=== PATIENT | female | born 1985 | race Caucasian/White ===

== ENCOUNTER → 2018-11-07 | Outpatient (CLI) | payer OTHER ==
[~2018-11-07] VITALS: Ht 167.6 cm; Wt 50.3 kg
[~2018-11-07] MED LIST: AZAT50TA16 PO; CITA20TA12 PO; CITA40TA19 PO; CYCL5TAB PO; HYDR-34 PO; PRD20T PO; RABE20TA PO; VEDOLIZUMAB 300 MG/NS 250 ML IVPB IV SCH
[2018-11-07 13:00] VITALS: BP 114/65
== END ==
LOC: EDSTATUS 11-06 12:43 → SDC 12:47
PROVIDERS: ATTEND Pediatrics
DX: K50.90 Crohn's disease, unspecified, without complications (principal)
CPT/HCPCS: 96365; 96366; J3380

== ENCOUNTER 2019-01-15 12:48 | Outpatient (CLI) | payer OTHER ==
[~2019-01-15] VITALS: Ht 167.6 cm; Wt 50.3 kg
[~2019-01-15 12:48] MED LIST changes: -VEDOLIZUMAB 300 MG/NS 250 ML IVPB IV SCH
[2019-01-15 13:00] VITALS: BP 101/66
[2019-01-15] MEDS ORDERED: VEDOLIZUMAB 300 MG/NS 250 ML IVPB IV SCH ×2 (13:12)
== END 2019-05-31 08:08 | disposition home or self-care (01) ==
LOC: SDC 12:48
PROVIDERS: ATTEND Pediatrics
DX: K50.919 Crohn's disease, unspecified, with unspecified complications (principal)
CPT/HCPCS: 96365; J3380

== ENCOUNTER 2019-03-11 09:50 | Outpatient (CLI) | payer OTHER ==
[~2019-03-11] VITALS: Ht 167.6 cm; Wt 50.8 kg
[2019-03-11] MEDS ORDERED: VEDOLIZUMAB 300 MG/NS 250 ML IVPB IV SCH ×2 (10:00)
[2019-03-11 11:15] VITALS: BP 117/80
== END 2019-05-31 08:08 | disposition home or self-care (01) ==
LOC: SDC 09:50
PROVIDERS: ATTEND Pediatrics
DX: K50.919 Crohn's disease, unspecified, with unspecified complications (principal)
CPT/HCPCS: 96365; J3380

== ENCOUNTER 2019-05-07 12:03 | Outpatient (CLI) | payer OTHER ==
[~2019-05-07] VITALS: Ht 167.6 cm; Wt 50.8 kg
[2019-05-07 12:08] VITALS: BP 112/72
[2019-05-07] MEDS ORDERED: VEDOLIZUMAB 300 MG/NS 250 ML IVPB IV SCH ×2 (12:15)
== END 2019-05-31 08:08 | disposition home or self-care (01) ==
LOC: SDC 12:03
PROVIDERS: ATTEND Pediatrics
DX: K50.919 Crohn's disease, unspecified, with unspecified complications (principal)
CPT/HCPCS: 96365; J3380

== ENCOUNTER 2019-05-30 15:59 | Outpatient (CLI) | payer OTHER ==
[~2019-05-30] VITALS: Ht 167 cm; Wt 50.0 kg
[2019-05-30 16:22] VITALS: BP 103/72
[2019-05-30 16:26] LABS: BASOPHILS % (AUTO) 0 % (0-10); EOSINOPHILS % (AUTO) 0 % (0-10); HEMATOCRIT 38 % (35-52); LYMPHOCYTES # (AUTO) 1.5 X 10^3 (1.0-4.0); LYMPHOCYTES % (AUTO) 14 % (12-44); MEAN CORPUSCULAR HEMOGLOBIN 31 PG (25-34); MEAN CORPUSCULAR HGB CONC 34 G/DL (32-36); MEAN CORPUSCULAR VOLUME 91 FL (80-99); MEAN PLATELET VOLUME 9.9 FL (7.4-10.4); MONOCYTES # (AUTO) 0.5 X 10^3 (0.0-1.0); MONOCYTES % (AUTO) 5 % (0-12); NEUTROPHILS # (AUTO) 8.6 X 10^3 (1.8-7.8); NEUTROPHILS % (AUTO) 81 % (42-75); PLATELET COUNT 266 10^3/uL (130-400); WHITE BLOOD COUNT 10.6 10^3/uL (4.3-11.0)
[2019-05-30 16:46] LABS: ALANINE AMINOTRANSFERASE 14 U/L (0-55); ALBUMIN 4.5 GM/DL (3.2-4.5); ALKALINE PHOSPHATASE 85 U/L (40-136); BILIRUBIN,TOTAL 0.2 MG/DL (0.1-1.0); BUN/CREATININE RATIO 17; CALCIUM 9.4 MG/DL (8.5-10.1); CARBON DIOXIDE 27 MMOL/L (21-32); CHLORIDE 105 MMOL/L (98-107); CREATININE SERUM 0.81 MG/DL (0.60-1.30); GFR ESTIMATED > 60; GLUCOSE 93 MG/DL (70-105); POTASSIUM 4.1 MMOL/L (3.6-5.0); SODIUM 139 MMOL/L (135-145); TOTAL PROTEIN 6.8 GM/DL (6.4-8.2)
== END 2019-05-30 16:20 | disposition home or self-care (01) ==
LOC: SDC 15:59
PROVIDERS: ATTEND Pediatrics
DX: K50.019 Crohn's disease of small intestine with unspecified complications (principal)
CPT/HCPCS: 36415; 36591; 80053; 85025

== ENCOUNTER 2019-06-09 09:25 | Outpatient (RCR) | payer OTHER ==
[2019-06-07] MEDS: methylPREDNISolone 125 MG (Solu-MEDROL) VIAL IVP SCH (07:44)
[2019-06-07 07:45] VITALS: BP 101/70
[2019-06-08] MEDS: methylPREDNISolone 125 MG (Solu-MEDROL) VIAL IVP SCH (09:12)
[2019-06-08 09:15] VITALS: BP 114/62
[2019-06-08] MEDS: CATHETER FLUSH 10 ML SYR IV PRN (09:16)
[~2019-06-09] VITALS: Wt 50.0 kg
[~2019-06-09 09:25] MED LIST changes: +methylPREDNISolone 125 MG (Solu-MEDROL) VIAL ONE
[2019-06-09] MEDS: CATHETER FLUSH 10 ML SYR IV PRN (09:34)
[2019-06-09] MEDS: methylPREDNISolone 125 MG (Solu-MEDROL) VIAL IVP SCH (09:35)
[2019-06-09 10:12] VITALS: BP 106/71
[2019-07-16] MEDS ORDERED: ACHD5005 PO (15:19)
== END 2019-09-05 | disposition home or self-care (01) ==
LOC: SDC 09:25
PROVIDERS: ATTEND Pediatrics
DX: I47.1 Supraventricular tachycardia (principal); D51.9 Vitamin B12 deficiency anemia, unspecified; K52.9 Noninfective gastroenteritis and colitis, unspecified
CPT/HCPCS: 96374

== ENCOUNTER → 2019-07-02 | Outpatient (CLI) | payer OTHER ==
[~2019-07-02] VITALS: Ht 165 cm; Wt 50.0 kg
[~2019-07-02] MED LIST changes: +VEDOLIZUMAB 300 MG/NS 250 ML IVPB IV SCH; -methylPREDNISolone 125 MG (Solu-MEDROL) VIAL ONE
[2019-07-02 13:31] VITALS: BP 100/71
== END ==
LOC: SDC 12:40
PROVIDERS: ATTEND Pediatrics
DX: K50.90 Crohn's disease, unspecified, without complications (principal)
CPT/HCPCS: J3380

== ENCOUNTER 2019-07-16 12:50 | Emergency (ER) | payer OTHER ==
[~2019-07-16] VITALS: Ht 166 cm; Wt 50.4 kg
[~2019-07-16 12:50] MED LIST changes: -VEDOLIZUMAB 300 MG/NS 250 ML IVPB IV SCH
[2019-07-16] MEDS ORDERED: morphine INJ 10 MG/ML 1ML (SYR OR VIAL) IVP STA (13:14)
[2019-07-16] MEDS ORDERED: ONDANSETRON 4 MG/2 ML (SDV) Z0FRAN IVP ONE (13:15)
[2019-07-16] MEDS ORDERED: NS IV 1000 ML 1,000 ML IV SCH (13:15)
--- NOTE | 2019-07-16 13:37 | ED GI ---
General Chief Complaint: Abdominal/GI Problems Stated Complaint: VOMITING Nursing Triage Note: Patient reports nausea/vomiting for 48 hours, states she has been unable to keep down any food or fluids, also reports loose stools are slightly worse than usual. Patient states she has Crohn's disease and is currently taking antivio and imuran. States she tried zofran at home without relief. Sepsis Screen: No Definite Risk Source of Information: Patient Exam Limitations: No Limitations History of Present Illness Date Seen by Provider: Jul 16, 2019 Time Seen by Provider: 13:10 Initial Comments He is a pleasant 33-year-old female presents for evaluation of nausea and vomi ting over the last 48 hours as well as some generalized abdominal pain. She reports that since similar symptoms in the past related to Crohn's flares. She reports that she had a hysterectomy earlier this year. She denies any other abdominal surgeries. She states that her stools have been loose and she's been unable to keep fluids down. She denies hematemesis, fevers or chills, back or flank pain, urinary complaints, chest pain or shortness of breath, headache, neck pain, or syncope. She states that she is currently taking an Entyvio and Imuran for her UC. Timing/Duration: 1-2 Days Severity/Quality: Moderate Location: Generalized Abdomen Radiation: No Radiation Activities at Onset: None Associated Symptoms: Nausea/Vomiting Allergies and Home Medications Allergies Coded Allergies: No Known Drug Allergies (Unverified , 05/13/10) Home Medications Azathioprine 50 Mg Tablet, 50 MG PO BID, (Reported) Citalopram Hydrobromide 20 Mg Tablet, 20 MG PO HS, (Reported) Cyclobenzaprine HCl 5 Mg Tablet, 5 MG PO Q6H, (Reported) Prednisone 20 Mg Tab, 20 MG PO DAILY, (Reported) Patient Home Medication List Home Medication List Reviewed: Yes Review of Systems Review of Systems Constitutional: no symptoms reported EENTM: No Symptoms Reported Respiratory: No Symptoms Reported Cardiovascular: No Symptoms Reported Gastrointestinal: Abdominal Pain, Nausea, Vomiting Genitourinary: No Symptoms Reported Musculoskeletal: no symptoms reported Skin: no symptoms reported Psychiatric/Neurological: No Symptoms Reported Endocrine: No Symptoms Reported Hematologic/Lymphatic: No Symptoms Reported All Other Systems Reviewed Negative Unless Noted: Yes Past Pemmtao-Cqzoad-Spywoy Hx Past Med/Social Hx: Reviewed Nursing Past Med/Soc Hx Patient Social History Recent Foreign Travel: No Contact w/Someone Who Travel: No Recent Infectious Disease Expo: No Physical Exam Vital Signs Vital Signs - First Documented 07/16/19 12:55 Temp 36.4 Pulse 77 Resp 16 B/P (MAP) 104/63 (77) Pulse Ox 98 O2 Delivery Room Air Capillary Refill : Less Than 3 Seconds Height/Weight/BMI Height: 5'6.00" Weight: 112lbs. 0.0oz. [id number]; 18.00 BMI Method:Stated General Appearance: WD/WN, no apparent distress HEENT: PERRL/EOMI, normal ENT inspection Respiratory: chest non-tender, lungs clear, normal breath sounds, no respiratory distress, no accessory muscle use Cardiovascular: regular rate, rhythm, no edema, no JVD Gastrointestinal: normal bowel sounds, soft, tenderness (generalized, mild, soft, no guarding, no rigidity) Extremities: normal range of motion, non-tender, normal capillary refill Back: normal inspection, no CVA tenderness, no vertebral tenderness Neurologic/Psychiatric: claim investigator II-XII nml as tested, no motor/sensory deficits, alert, normal mood/affect, oriented x 3 Skin: normal color, warm/dry Progress/Results/Core Measures Results/Orders Lab Results Laboratory Tests Test 07/16/19 13:30 Range/Units White Blood Count 14.3 H 4.3-11.0 10^3/uL Red Blood Count 4.76 4.35-5.85 10^6/uL Hemoglobin 14.7 11.5-16.0 G/DL Hematocrit 44 35-52 % Mean Corpuscular Volume 92 80-99 FL Mean Corpuscular Hemoglobin 31 25-34 PG Mean Corpuscular Hemoglobin Concent 34 32-36 G/DL Red Cell Distribution Width 12.3 10.0-14.5 % Platelet Count 244 130-400 10^3/uL Mean Platelet Volume 9.8 7.4-10.4 FL Neutrophils (%) (Auto) 87 H 42-75 % Lymphocytes (%) (Auto) 6 L 12-44 % Monocytes (%) (Auto) 5 0-12 % Eosinophils (%) (Auto) 1 0-10 % Basophils (%) (Auto) 1 0-10 % Neutrophils # (Auto) 12.5 H 1.8-7.8 X 10^3 Lymphocytes # (Auto) 0.8 L 1.0-4.0 X 10^3 Monocytes # (Auto) 0.8 0.0-1.0 X 10^3 Eosinophils # (Auto) 0.1 0.0-0.3 10^3/uL Basophils # (Auto) 0.1 0.0-0.1 10^3/uL Neutrophils % (Manual) 77 % Lymphocytes % (Manual) 5 % Monocytes % (Manual) 6 % Eosinophils % (Manual) 1 % Basophils % (Manual) 1 % Band Neutrophils 10 % Blood Morphology Comment NORMAL Urine Color DARK YELLOW Urine Clarity CLEAR Urine pH 5.5 5-9 Urine Specific Webster >=1.030 1.016-1.022 Urine Protein NEGATIVE NEGATIVE Urine Glucose (UA) NEGATIVE NEGATIVE Urine Ketones 3+ H NEGATIVE Urine Nitrite NEGATIVE NEGATIVE Urine Bilirubin 2+ H NEGATIVE Urine Urobilinogen 0.2 < = 1.0 MG/DL Urine Leukocyte Esterase NEGATIVE NEGATIVE Urine RBC (Auto) NEGATIVE NEGATIVE Urine RBC 0-2 /HPF Urine WBC 0-2 /HPF Urine Squamous Epithelial Cells 10-25 H /HPF Urine Crystals NONE /LPF Urine Bacteria MODERATE H /HPF Urine Casts NONE /LPF Urine Mucus MODERATE H /LPF Urine Culture Indicated NO Sodium Level 138 135-145 MMOL/L Potassium Level 4.0 3.6-5.0 MMOL/L Chloride Level 101 98-107 MMOL/L Carbon Dioxide Level 20 L 21-32 MMOL/L Anion Gap 17 H 5-14 MMOL/L Blood Urea Nitrogen 15 7-18 MG/DL Creatinine 0.69 0.60-1.30 MG/DL Estimat Glomerular Filtration Rate > 60 BUN/Creatinine Ratio 22 Glucose Level 82 70-105 MG/DL Calcium Level 9.2 8.5-10.1 MG/DL Corrected Calcium 8.8 8.5-10.1 MG/DL Total Bilirubin 0.5 0.1-1.0 MG/DL Aspartate Amino Transf (AST/SGOT) 16 5-34 U/L Alanine Aminotransferase (ALT/SGPT) 12 0-55 U/L Alkaline Phosphatase 92 40-136 U/L Total Protein 7.3 6.4-8.2 GM/DL Albumin 4.5 3.2-4.5 GM/DL Amylase Level 41 25-125 U/L Lipase 13 8-78 U/L My Orders Orders - PERFECTO,MELISSA B DO Amylase (07/16/19 13:05) Cbc With Automated Diff (07/16/19 13:05) Comprehensive Metabolic Panel (07/16/19 13:05) Lipase (07/16/19 13:05) Ua Culture If Indicated (07/16/19 13:05) Ed Iv/Invasive Line Start (07/16/19 13:05) Ct Abdomen/Pelvis W (07/16/19 13:14) Morphine Injection (Morphine Injection (07/16/19 13:14) Ondansetron Injection (Zofran Injectio (07/16/19 13:15) Ns Iv 1000 Ml (Sodium Chloride 0.9%) (07/16/19 13:15) Iohexol Injection (Omnipaque 350 Mg/Ml 1 (07/16/19 13:45) Received Contrast (Hold Metformin- Contr (07/16/19 13:45) Sodium Chloride Flush (Catheter Flush Sy (07/16/19 13:45) Ns (Ivpb) (Sodium Chloride 0.9% Ivpb Bag (07/16/19 13:45) Manual Differential (07/16/19 13:30) Medications Given in ED Current Medications Medications Dose Ordered Sig/Alix Route Start Time Stop Time Status Last Admin Dose Admin Iohexol 100 ml ONCE ONCE IV 07/16/19 13:45 07/16/19 13:46 DC 07/16/19 14:11 100 ML Ondansetron HCl 4 mg ONCE ONCE IVP 07/16/19 13:15 07/16/19 13:16 DC 07/16/19 13:41 4 MG Sodium Chloride 10 ml NEEDED PRN IV 07/16/19 13:45 07/16/19 14:11 10 ML Sodium Chloride 100 ml ONCE ONCE IV 07/16/19 13:45 07/16/19 13:46 DC 07/16/19 14:11 80 ML Vital Signs/I&O 07/16/19 12:55 Temp 36.4 Pulse 77 Resp 16 B/P (MAP) 104/63 (77) Pulse Ox 98 O2 Delivery Room Air Blood Pressure Mean: 77 POS Progress Progress Note : Progress Note @1515 - patient updated on lab and imaging results. The patient states that she is feeling "100 times better than when she got here". She has Zofran at home which she plans to take as needed. Advised patient to follow up with her PCP in the next 1-2 days and to return to the Emergency Department immediately for new or worsening symptoms. Workup today fails to reveal any emergent pathology. The patient expresses verbal understanding and agreement with the plan and is stable for discharge. Diagnostic Imaging Comments [facility]pling [facility]. POS [place], [place] POS NAME: FRANCY SHORT [facility] REC#: [id number] PT STATUS: REG ER : 1985 PHYSICIAN: MELISSA GROVE DO ADMIT DATE: 07/16/19/ER FS Draft POSDate of Exam:07/16/19 CT ABDOMEN/PELVIS W CT ABDOMEN/PELVIS W TECHNIQUE: Multiple contiguous axial images were obtained through the abdomen and pelvis after administration of intravenous contrast. All CT scans use one or more of the following dose optimizing techniques: automated exposure control, MA and/or KvP adjustment based on a patient size and exam type, or iterative reconstruction. INDICATION: Abdominal pain. COMPARISON: Abdominal pain, vomiting. FINDINGS: Lower chest: The lung bases are clear. No pericardial or pleural effusion. Peritoneum: No free intraperitoneal air or fluid. Liver and biliary system: Small focus of fatty infiltration along the falciform ligament. Remainder of the liver is normal. Cholecystectomy. No biliary duct dilatation. Spleen and Pancreas: Spleen is normal. The pancreas enhances normally without mass lesion or peripancreatic inflammatory changes. Adrenals: Normal. tract: The kidneys enhance normally without suspicious mass or obstruction. Urinary bladder is decompressed and not well evaluated. Status post hysterectomy. No concerning adnexal mass. GI tract: Stomach is partially filled with fluid and there is no wall thickening. No bowel obstruction. No pericolonic inflammatory changes. Appendix is normal. Vasculature and Lymph nodes: Normal caliber aorta. No abdominal or pelvic lymphadenopathy. Musculoskeletal: No concerning osseous lesion. IMPRESSION: 1. No acute obstructive or inflammatory process in the abdomen and pelvis. Dictated on workstation # [id number] Dict: 07/16/19 1437 Trans: 07/16/19 1441 [facility] [id number] Interpreted by: CONOR RUBIN MD Electronically signed by: Departure Impression Primary Impression: Abdominal pain Additional Impressions: Acute Crohn's disease Nausea & vomiting Dehydration Disposition: 01 HOME, SELF-CARE Condition: Stable Departure-Patient Inst. Decision time for Depature: 15:17 Referrals: ARCHIE GROVER MD (PCP/Family) Primary Care Physician Patient Instructions: Crohn's Disease (DC), Nausea and Vomiting, Adult, Acute Abdomen (Belly Pain), Adult (DC) Add. Discharge Instructions: Take the prescribed medicine as directed. Follow-up with your doctor in the next 1-2 days. Return to the emergency Department immediately for new or worsening symptoms. Take the prescribed medicine as directed, as needed. Scripts Hydrocodone Bit/Acetaminophen (Hydrocodone/Acetaminophen 5/325mg Tablet) 1 Tab Tab 1 EACH PO Q4-6HR PRN for PAIN-MODERATE MDD 10 for 5 Days, #15 TAB Prov: MELISSA GROVE DO 07/16/19 MELISSA GROVE DO Jul 16, 2019 13:37 POS
[2019-07-16] MEDS ORDERED: HOLD METFORMIN - RECEIVED CONTRAST 20 ML VIAL IV SCH (13:45)
[2019-07-16] MEDS ORDERED: NS 100 ML (IVPB) BAG IV ONE (13:45)
[2019-07-16] MEDS ORDERED: CATHETER FLUSH 10 ML SYR IV PRN (13:45)
[2019-07-16] MEDS ORDERED: IOHEXOL 350 MG/ML 100 ML (OMNIPAQUE 350) VIAL IV ONE (13:45)
[2019-07-16 14:07] LABS: CLARITY,URINE CLEAR; COLOR,URINE DARK YELLOW; GLUCOSE, URINE (UA) NEGATIVE (NEGATIVE); KETONES,URINE 3+ (NEGATIVE); NITRITE,URINE NEGATIVE (NEGATIVE); PH,URINE 5.5 (5-9); PROTEIN,URINE NEGATIVE (NEGATIVE)
[2019-07-16 14:08] LABS: BACTERIA,URINE MODERATE /HPF; BILIRUBIN,URINE 2+ (NEGATIVE); LEUKOCYTE ESTERASE ,URINE NEGATIVE (NEGATIVE); RBC,URINE 0-2 /HPF; WBC,URINE 0-2 /HPF
[2019-07-16 14:09] LABS: BASOPHILS % (AUTO) 1 % (0-10); EOSINOPHILS % (AUTO) 1 % (0-10); HEMATOCRIT 44 % (35-52); HEMOGLOBIN 14.7 G/DL (11.5-16.0); LYMPHOCYTES % (AUTO) 6 % (12-44); MEAN CORPUSCULAR HEMOGLOBIN 31 PG (25-34); MEAN CORPUSCULAR HGB CONC 34 G/DL (32-36); MEAN CORPUSCULAR VOLUME 92 FL (80-99); MEAN PLATELET VOLUME 9.8 FL (7.4-10.4); PLATELET COUNT 244 10^3/uL (130-400); RED CELL DISTRIBUTION WIDTH 12.3 % (10.0-14.5); WHITE BLOOD COUNT 14.3 10^3/uL (4.3-11.0)
[2019-07-16 14:10] LABS: BASOPHILS # (AUTO) 0.1 10^3/uL (0.0-0.1); EOSINOPHILS # (AUTO) 0.1 10^3/uL (0.0-0.3); LYMPHOCYTES # (AUTO) 0.8 X 10^3 (1.0-4.0); MONOCYTES # (AUTO) 0.8 X 10^3 (0.0-1.0); MONOCYTES % (AUTO) 5 % (0-12); NEUTROPHILS # (AUTO) 12.5 X 10^3 (1.8-7.8); NEUTROPHILS % (AUTO) 87 % (42-75)
[2019-07-16 14:11] LABS: BAND NEUTROPHILS 10 %; BASOPHILS % (MANUAL) 1 %; EOSINOPHILS % (MANUAL) 1 %; LYMPHOCYTES % (MANUAL) 5 %; MONOCYTES % (MANUAL) 6 %; NEUTROPHILS % (MANUAL) 77 %
[2019-07-16 14:12] LABS: ALKALINE PHOSPHATASE 92 U/L (40-136); BILIRUBIN,TOTAL 0.5 MG/DL (0.1-1.0); BUN/CREATININE RATIO 22; CALCIUM 9.2 MG/DL (8.5-10.1); CARBON DIOXIDE 20 MMOL/L (21-32); CHLORIDE 101 MMOL/L (98-107); CREATININE SERUM 0.69 MG/DL (0.60-1.30); GFR ESTIMATED > 60; GLUCOSE 82 MG/DL (70-105); RBC MORPH NORMAL; SODIUM 138 MMOL/L (135-145)
[2019-07-16 14:13] LABS: ALANINE AMINOTRANSFERASE 12 U/L (0-55); ALBUMIN 4.5 GM/DL (3.2-4.5); AMYLASE 41 U/L (25-125); LIPASE 13 U/L (8-78); TOTAL PROTEIN 7.3 GM/DL (6.4-8.2)
--- NOTE | 2019-07-16 14:41 | Diagnostic Imaging Report ---
CT ABDOMEN/PELVIS W TECHNIQUE: Multiple contiguous axial images were obtained through the abdomen and pelvis after administration of intravenous contrast. All CT scans use one or more of the following dose optimizing techniques: automated exposure control, MA and/or KvP adjustment based on a patient size and exam type, or iterative reconstruction. INDICATION: Abdominal pain. COMPARISON: Abdominal pain, vomiting. FINDINGS: Lower chest: The lung bases are clear. No pericardial or pleural effusion. Peritoneum: No free intraperitoneal air or fluid. Liver and biliary system: Small focus of fatty infiltration along the falciform ligament. Remainder of the liver is normal. Cholecystectomy. No biliary duct dilatation. Spleen and Pancreas: Spleen is normal. The pancreas enhances normally without mass lesion or peripancreatic inflammatory changes. Adrenals: Normal. tract: The kidneys enhance normally without suspicious mass or obstruction. Urinary bladder is decompressed and not well evaluated. Status post hysterectomy. No concerning adnexal mass. GI tract: Stomach is partially filled with fluid and there is no wall thickening. No bowel obstruction. No pericolonic inflammatory changes. Appendix is normal. Vasculature and Lymph nodes: Normal caliber aorta. No abdominal or pelvic lymphadenopathy. Musculoskeletal: No concerning osseous lesion. IMPRESSION: 1. No acute obstructive or inflammatory process in the abdomen and pelvis. Dictated by: Dictated on workstation # [id number]
[2019-07-16] MEDS ORDERED: ACHD5005 PO (15:19)
[2019-07-16 15:31] VITALS: BP 107/58
== END 2019-07-16 15:00 | disposition home or self-care (01) ==
LOC: EDUNIT# 12:50 → ER FS 12:51
DX: K50.90 Crohn's disease, unspecified, without complications (principal); E86.0 Dehydration; Z90.710 Acquired absence of both cervix and uterus; Z79.52 Long term (current) use of systemic steroids
CPT/HCPCS: 36415; 74177; 80053; 81000; 82150; 83690; 84703; 85007; 85027

== ENCOUNTER → 2019-08-27 | Outpatient (CLI) | payer OTHER ==
[~2019-08-27] VITALS: Ht 165 cm; Wt 50.2 kg
[~2019-08-27] MED LIST changes: +ACHD5005 PO; +VEDOLIZUMAB 300 MG/NS 250 ML IVPB IV SCH
[2019-08-27 10:21] VITALS: BP 114/85
== END ==
LOC: SDC 09:50
PROVIDERS: ATTEND Pediatrics
DX: K50.90 Crohn's disease, unspecified, without complications (principal)
CPT/HCPCS: 96365; J3380

== ENCOUNTER → 2019-10-22 | Outpatient (CLI) | payer OTHER ==
[~2019-10-22] MED LIST changes: +VEDOLIZUMAB 300 MG/NS 250 ML IVPB IV NR; -VEDOLIZUMAB 300 MG/NS 250 ML IVPB IV SCH
[2019-10-22 10:49] VITALS: BP 105/74
== END ==
LOC: SDC 09:43
PROVIDERS: ATTEND Pediatrics
DX: K50.919 Crohn's disease, unspecified, with unspecified complications (principal)
CPT/HCPCS: 96365; J3380